=== PATIENT | male | born 1950 | race Caucasian/White ===

== ENCOUNTER → 2021-01-12 | Outpatient (CLI) | payer MEDICARE ==
[~2021-01-12] MED LIST: ASPIRIN E.C. 8181 MG PO; COZAAR100 MG PO; HCTZ 25MG TAB25 MG PO; LIPITOR 40MG TA40 MG PO; LYRICA 75MG CAP75 MG PO
[2021-01-12 10:04] VITALS: BP 149/83; PULSE 64; TEMP 98
[2021-01-12 10:55] VITALS: BP 150/89; PULSE 63
== END ==
LOC: COL.RAD 09:40
DX: K11.9 Disease of salivary gland, unspecified (principal)
CPT/HCPCS: 32108

== ENCOUNTER → 2021-10-06 | Outpatient (CLI) | payer MEDICARE | LOC: COL.RAD 06:52 | DX: M47.816 Spondylosis without myelopathy or radiculopathy, lumbar region (principal); M51.36 Other intervertebral disc degeneration, lumbar region; M48.05 Spinal stenosis, thoracolumbar region | CPT/HCPCS: J3301 ==